=== PATIENT | male | born 1975 | race Caucasian/White ===

== ENCOUNTER 2020-06-03 12:17 | Emergency (ER) | payer OTHER ==
[~2020-06-03] VITALS: Ht 190.5 cm; Wt 127.0 kg
[2020-06-03 12:47] VITALS: BP 147/102
--- NOTE | 2020-06-03 12:54 | NUR ---
44/M BIB FAMILY C/O RUNNY NOSE , BODY ACHE 5/10 X 2 DAYS AND C/O SUBJECTIVE FEVER, COUGH X LAST NIGHT.MED HX: DENIES.
[2020-06-03 13:21] VITALS: BP 147/102
--- NOTE | 2020-06-03 13:21 | NUR ---
COVID SWAB DONE.SENT TO LAB.
== END 2020-06-03 13:21 | disposition home or self-care (01) ==
LOC: MED 12:17
DX: B34.9 Viral infection, unspecified (principal); Z20.828 Contact with and (suspected) exposure to other viral communicable diseases
CPT/HCPCS: 99283; U0003

== ENCOUNTER 2021-07-08 14:20 | Emergency (ER) | payer OTHER ==
--- NOTE | 2021-07-08 15:16 | NUR ---
CALLED IN LOBBY AND OUTSIDE AT THIS TIME. NO RESPONSE.
[2021-07-08] MEDS ORDERED: IBUPROFEN 800 MG TAB PO ONE (15:25)
--- NOTE | 2021-07-08 15:30 | NUR ---
called in lobby and tent, no response, patient left without being seen by physician.
--- NOTE | 2021-07-08 15:43 | NUR ---
CALLED IN LOBBY AND OUTSIDE AT THIS TIME. NO RESPONSE
== END 2021-07-08 15:16 | disposition left against medical advice (07) ==
LOC: MED 14:20
DX: R51.9 Headache, unspecified (principal); Z53.21 Procedure and treatment not carried out due to patient leaving prior to being seen by health care provider

== ENCOUNTER 2021-09-07 12:40 | Emergency (ER) | payer OTHER ==
[~2021-09-07] VITALS: Ht 188 cm; Wt 94.3 kg
[2021-09-07 12:58] VITALS: BP 147/80
[2021-09-07] MEDS ORDERED: TETRACAINE HCL/PF 0.5% OPTH 4 ML BTL OP ONE (13:05)
[2021-09-07] MEDS ORDERED: FLUORESCEIN OPTH STRIP 1 MG OP ONE (13:05)
--- NOTE | 2021-09-07 13:30 | NUR ---
TERRENCE SMITH AT BEDSIDE EXAMINING PT
--- NOTE | 2021-09-07 13:30 | NUR ---
46 Y/O MALE C/O LEFT EYE PAIN 5/10 DESCRIBES BURNING X4DAYS. PT STATES AT WORK POSSIBLE WOOD CHIPS AND DUST IN EYE. LEFT EYE SWELLING AND REDNESS NOTED. DENIES RX PRIOR TO ARRIVAL, DENIES FEVER/CHILLS, DENIES N/V/D. DENIES PMH NKA
[2021-09-07] MEDS ORDERED: ERYT5OIN58 OP (13:35)
[2021-09-07 13:42] VITALS: BP 147/80
--- NOTE | 2021-09-07 13:42 | NUR ---
Patient discharged with v/s stable. Written and verbal after care instructions given and explained. Patient alert, oriented and verbalized understanding of instructions. Ambulatory with steady gait. All questions addressed prior to discharge. ID band removed. Patient advised to follow up with PMD. Rx of ERYTHROMYCIN given. Patient educated on indication of medication including possible reaction and side effects. Opportunity to ask questions provided and answered.
== END 2021-09-07 13:42 | disposition home or self-care (01) ==
LOC: MED 12:40
DX: H01.005 Unspecified blepharitis left lower eyelid (principal); Z79.899 Other long term (current) drug therapy
CPT/HCPCS: 99283